=== PATIENT | female | born 1975 | race Caucasian/White ===

== ENCOUNTER 2017-07-27 08:59 | Emergency (ER) | payer SELFPAY ==
[2017-07-27] MEDS ORDERED: HYDROcodone/Acetaminophen 10/325 mg Tablet ONE (09:23)
[2017-07-27] MEDS ORDERED: Ibuprofen 800 MG TAB ONE (09:24)
--- NOTE | 2017-07-27 09:52 | RAD ---
3 VIEWS LEFT HAND: Date: 07/27/17 HISTORY: Injury to left hand. Patient fell while running. FINDINGS: There is a punctate increased density focus overlying subcutaneous soft tissues volar to the head of the middle phalanx of middle finger. However, this is likely artifactual. There is no fracture, dis location, or other osseous abnormality. IMPRESSION: No acute osseous abnormality of the left hand. POS: [facility]
--- NOTE | 2017-07-27 09:53 | RAD ---
3 VIEWS LEFT FOOT: Date: 07/27/17 HISTORY: Patient fell while running. FINDINGS: There is a bipartite medial sesamoid bone. There is no fracture, dislocation, or other osseous abnor mality. Lisfranc joint is normally aligned. 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 IMPRESSION: No acute osseous abnormality left foot. POS: [facility]
== END 2017-07-27 11:37 | disposition home or self-care (01) ==
LOC: NAV ERS 08:59
DX: S93.602A Unspecified sprain of left foot, initial encounter (principal); S63.92XA Sprain of unspecified part of left wrist and hand, initial encounter; F41.9 Anxiety disorder, unspecified; F32.9 Major depressive disorder, single episode, unspecified; F17.210 Nicotine dependence, cigarettes, uncomplicated; W18.30XA Fall on same level, unspecified, initial encounter; Y93.02 Activity, running

== ENCOUNTER 2019-12-08 22:38 | Emergency (ER) | payer SELFPAY ==
[2019-12-08] MEDS ORDERED: Ibuprofen 800 MG TAB ONE (23:11)
[2019-12-08] MEDS ORDERED: methylPREDNISolone Sod Succ/PF 125 MG/2 ML VIAL ONE (23:11)
--- NOTE | 2019-12-08 23:42 | RAD ---
XR Chest Pa Lat STANDARD History: Cough Comparison: None. Findings: Lungs are clear. No pneumothorax or effusion. Cardiac silhouette and mediastinal contours a re within normal limits. Impression: No acute intrathoracic abnormality.
== END 2019-12-09 00:19 | disposition home or self-care (01) ==
LOC: NAV ERS 22:38
DX: J06.9 Acute upper respiratory infection, unspecified (principal); F41.9 Anxiety disorder, unspecified; F32.9 Major depressive disorder, single episode, unspecified; F98.8 Other specified behavioral and emotional disorders with onset usually occurring in childhood and adolescence; F17.210 Nicotine dependence, cigarettes, uncomplicated; Z79.899 Other long term (current) drug therapy
CPT/HCPCS: 71046; 94640; 96372; J2930; J7620